=== PATIENT | female | born 1955 | race Caucasian/White ===

== ENCOUNTER 2022-04-18 11:43 | Emergency (ER) | payer MEDICARE, OTHER ==
[2022-04-18 12:35] VITALS: BP 111/75; PULSE 74
== END 2022-04-18 12:23 | disposition home or self-care (01) ==
LOC: VM.ED 11:43
DX: F41.9 Anxiety disorder, unspecified (principal); I25.10 Atherosclerotic heart disease of native coronary artery without angina pectoris; E78.00 Pure hypercholesterolemia, unspecified; I10 Essential (primary) hypertension; I25.2 Old myocardial infarction; E11.9 Type 2 diabetes mellitus without complications; Z79.4 Long term (current) use of insulin; Z79.899 Other long term (current) drug therapy
CPT/HCPCS: 99283

== ENCOUNTER 2022-04-27 10:16 | Day surgery (SDC) | payer MEDICARE, OTHER ==
[~2022-04-27 10:16] MED LIST: Lactated Ringers 1,000 ML IV SCH; Sodium Chloride 0.9% 10 ML Syringe FLUSH PRN
[2022-04-27] MEDS: Glucose Gel 15 GM in 37.5 GM Tube PO PRN ×2 (10:59→11:11)
[2022-04-27] MEDS ORDERED: fentaNYL 100 MCG/2 ML SDV ONE (11:00)
[2022-04-27] MEDS ORDERED: Propofol 200 MG/20 ML SDV ONE (11:00)
[2022-04-27] MEDS ORDERED: Dextrose 5%-Lactated Ringers 1,000 ML IV SCH (11:24)
[2022-04-27 12:23] VITALS: BP 110/59; PULSE 79
== END 2022-04-27 13:15 | disposition home or self-care (01) ==
LOC: VM.SDS 10:16
PROVIDERS: ATTEND Surgery
DX: Z12.11 Encounter for screening for malignant neoplasm of colon (principal); K63.5 Polyp of colon; K57.30 Diverticulosis of large intestine without perforation or abscess without bleeding; I12.9 Hypertensive chronic kidney disease with stage 1 through stage 4 chronic kidney disease, or unspecified chronic kidney disease; N18.30 Chronic kidney disease, stage 3 unspecified; E11.22 Type 2 diabetes mellitus with diabetic chronic kidney disease; E78.5 Hyperlipidemia, unspecified; K31.84 Gastroparesis; F17.210 Nicotine dependence, cigarettes, uncomplicated; Z86.010 Personal history of colon polyps; Z88.0 Allergy status to penicillin; Z88.8 Allergy status to other drugs, medicaments and biological substances; Z88.2 Allergy status to sulfonamides; Z88.5 Allergy status to narcotic agent; Z79.899 Other long term (current) drug therapy; Z79.4 Long term (current) use of insulin; Z79.82 Long term (current) use of aspirin; Z79.84 Long term (current) use of oral hypoglycemic drugs
CPT/HCPCS: 00811; 82947; 88305; A9270-GY; J2704; J3010; J7120; J7121